=== PATIENT | female | born 1960 ===

== ENCOUNTER → 2021-05-26 15:53 | Outpatient (BNVA) | payer OTHER, SELFPAY | PROVIDERS: PCP Internal Medicine; Visit Provider Nurse Practitioner Family | DX: R56.9 Unspecified convulsions (principal); D64.9 Anemia, unspecified; M79.10 Myalgia, unspecified site; R53.83 Other fatigue; Z79.4 Long term (current) use of insulin; Z79.899 Other long term (current) drug therapy | CPT/HCPCS: 99212 ==

== ENCOUNTER → 2021-07-25 11:38 | Outpatient (BNVA) | payer OTHER, MEDICARE, SELFPAY | PROVIDERS: PCP Internal Medicine; Visit Provider Nurse Practitioner Family | DX: M79.10 Myalgia, unspecified site (principal); R53.83 Other fatigue; R56.9 Unspecified convulsions | CPT/HCPCS: 99212 ==

== ENCOUNTER → 2021-11-24 09:18 | Outpatient (BNVA) | payer OTHER, SELFPAY | PROVIDERS: PCP Internal Medicine; Visit Provider Nurse Practitioner Family | DX: R56.9 Unspecified convulsions (principal); M79.10 Myalgia, unspecified site; R53.83 Other fatigue; Z79.899 Other long term (current) drug therapy | CPT/HCPCS: 99212 ==